=== PATIENT | male | born 1950 | race Caucasian/White ===

== ENCOUNTER 2018-02-03 05:32 | Observation (INO) ==
--- NOTE | 2018-01-30 13:37 | MH ---
cc: Denisha Saleh MD DATE OF ADMISSION: 02/03/2018 SURGERY DATE: 02/02/2018 ADMITTING DIAGNOSIS: Failed partial knee replacement, left knee now for revision left total knee arthroplasty. HISTORY OF PRESENT ILLNESS: This pleasant 67-year-old male is being admitted today for revision left knee arthroplasty due to failed partial knee replacement. PAST MEDICAL HISTORY: Other past history, he has a history of acute hepatitis C in the past, anxiety disorder, essential hypertension, back pain. PAST SURGICAL HISTORY: Include the left knee replacement. CURRENT MEDICATIONS: Include morphine for chronic pain. REVIEW OF SYSTEMS: Noncontributory. FAMILY HISTORY: Noncontributory. SOCIAL HISTORY: He smokes cigarettes occasionally. He does not drink. ALLERGIES: PENICILLIN. PHYSICAL EXAMINATION: GENERAL: A 67-year-old male, well-developed, well-nourished, alert and oriented x3, complaining of pain in his left lower extremity. VITAL SIGNS: Blood pressure 130/72, pulse of 67 and regular, respirations 16, temperature 98.3, pulse oximetry 97% on room air. EYES: PERRL, EOMI. Ears, nose, mouth clear. NECK: Supple. LUNGS: Clear. HEART: Regular rate. ABDOMEN: Soft, positive bowel sounds, nontender. EXTREMITIES: Reveal left knee crepitance on range of motion. Lacks 5 degrees short of full extension. He is neurovascularly intact to his toes. IMPRESSION: Failed partial knee replacement, left knee. PLAN: Admission for revision left knee arthroplasty. The patient plans on going home after surgical stay in the hospital and was given a prescription for postoperative pain and anticoagulation control in the office. Denisha Saleh MD JRR/ch , 01:17 PM , 01:24 PM
[2018-02-03] MEDS ORDERED: Chlorhexidine Gluconate 2% 1 Pack (2 Cloths) TOPICAL ONE ×2 (06:12→06:13)
[2018-02-03] MEDS ORDERED: Metoprolol Tartrate 25 MG Tablet PO ONE ×2 (06:12→06:13)
[2018-02-03] MEDS ORDERED: Sodium Chlor 0.9% Inj 80 ML, Bupivacaine Liposo PF 1.3% Inj 20 ML, Bupivacaine PF 0.25%... P-ARTICULR SCH ×3 (06:30)
[2018-02-03] MEDS ORDERED: Chlorhexidine 4% Topical 120 APPLIC/120 ML Bottle TOPICAL SCH (06:30)
[2018-02-03] MEDS ORDERED: Clindamycin 900 mg/NS Premix 900 MG/50 ML PIGGYBACK IV.SIG SCH (06:30)
[2018-02-03] MEDS ORDERED: Sodium Chlor 0.9% Inj 500 ML IV.SIG SCH ×2 (07:00)
[2018-02-03] MEDS ORDERED: SODIUM CHLOR 0.9% IV.SIG SCH ×2 (07:00→09:20)
[2018-02-03] MEDS ORDERED: Vancomycin Inj 1,000 MG in Sodium Chlor 0.9% Inj 250 ML IV.SIG SCH (07:00)
[2018-02-03] MEDS ORDERED: TRANEXAMIC ACID IV.SIG SCH ×2 (07:00→09:20)
[2018-02-03] MEDS ORDERED: Bupivacaine Liposomal PF 1.3% Inj 20 ML Vial ONE (07:01)
[2018-02-03 07:28] LABS: INR 1.5 Ratio; Prothrombin Time 15.1 sec (9.8-11.6)
[2018-02-03] MEDS ORDERED: Morphine Inj 4 MG/ML Vial IV.PUSH PRN (07:37)
[2018-02-03] MEDS ORDERED: Bisacodyl 10 MG Supp RECTAL PRN (07:37)
[2018-02-03] MEDS ORDERED: Tranexamic Acid Inj 1,000 MG in Sodium Chlor 0.9% Inj 100 ML IV.SIG ONE (07:37)
[2018-02-03] MEDS ORDERED: Post-op Orders (for Pharmacy) OTHER STA (07:37)
--- NOTE | 2018-02-03 07:43 | P.DCO ---
- Physical Therapy Order: Evaluate and treat, Improve ambulation, Strength and gait training - Home Health Nursing Order: Medical education, Nursing assessment with vital signs - Case Management Consult Yes - Certification I have seen patient Dario Thomas on 02/03/18. My clinical findings support the need for the requested home health care services because: High risk of falls I certify that my clinical findings support that this patient is homebound because: Post-op weakness, Unsafe to leave home unassisted
[2018-02-03] MEDS ORDERED: Labetalol HCl Inj 100 MG/20 ML Vial IV.CONT ONE (07:45)
[2018-02-03] MEDS ORDERED: Neostigmine Inj 5 MG/5 ML Syringe IV.PUSH ONE (07:45)
[2018-02-03] MEDS ORDERED: Glycopyrrolate Inj 1 MG/5 ML Syringe IV.PUSH ONE (07:45)
[2018-02-03] MEDS ORDERED: Lidocaine PF 1% Inj 5 ML Syringe OTHER ONE (07:45)
[2018-02-03] MEDS ORDERED: Clindamycin Inj 900 MG/6 ML Vial ONE (07:47)
[2018-02-03] MEDS ORDERED: Non-Formulary Drug (Omega 3-Dha-Epa-Fish Oil [Fish Oil] 1 CAP) PO SCH (09:00)
--- NOTE | 2018-02-03 11:32 | P.BOP ---
- Preoperative Diagnosis (1) Failed total left knee replacement - Postoperative Diagnosis (1) Status post revision of total replacement of left knee Date of procedure: 02/03/18 Procedure: Revision Left Total Knee Implants: see implant record Anesthesia: GETA Surgeon: Denisha Saleh MD Chief Substation Operator: Oksana Ochoa Estimated blood loss (mL): 400 Tourniquet time (min): 0 Urine output (mL): 0 (no choi) Pathology: other (left knee fluid) Condition: stable Disposition: PACU
[2018-02-03] MEDS ORDERED: fentaNYL Citrate Inj 100 MCG/2 ML Ampul ONE ×2 (11:35→11:36)
[2018-02-03] MEDS ORDERED: Morphine Inj 4 MG/ML Vial ONE (11:36)
[2018-02-03] MEDS ORDERED: *morphine SULFATE 10 MG/ML PERIprocedure ONLY ONE (11:58)
--- NOTE | 2018-02-03 12:18 | XR ---
EXAM DATE: 02/03/2018 12:15 PM EDT AGE/SEX: 67 years / Male INDICATIONS: Post op left knee. CLINICAL DATA: This is the patient's initial encounter. Patient reports that signs and symptoms have been present for 1 day and indicates a pain score of Nonresponsive. MEDICAL/SURGICAL HISTORY: None. None. COMPARISON: No prior exams available for comparison. FINDINGS: The patient's had a total knee arthroplasty with excellent position. There is no acute fracture. No l ytic or blastic lesion is identified. CONCLUSION: Total knee arthroplasty without complication Electronically signed by: Vignesh Nolan MD 02/03/2018 12:16 PM EDT
[2018-02-03] MEDS: Senna/Docusate Sodium 8.6/50 MG Tablet PO SCH ×2 (12:44→20:42)
[2018-02-03] MEDS ORDERED: *morphine SULFATE 4 MG/ML PERIprocedure ONLY ONE (13:21)
[2018-02-03] MEDS: Multivitamin/Minerals Therapeutic Tablet PO SCH ×2 (14:36→20:42)
[2018-02-03] MEDS: Ascorbic Acid 500 MG Tablet PO SCH (14:37)
[2018-02-03] MEDS: valACYclovir 500 MG Tab PO SCH (14:37)
--- NOTE | 2018-02-03 14:37 | MP ---
cc: Denisha Saleh MD DATE OF OPERATION: 02/03/2018 DATE OF SURGERY: 02/03/2018. PREOPERATIVE DIAGNOSIS: Failed left knee arthroplasty. POSTOPERATIVE DIAGNOSIS: Failed left knee arthroplasty. SURGERY PERFORMED: Revision of left knee arthroplasty with Consensus components; size 5 femur, 5 tibia, 14 insert and size 2 mm x 7.5 mm patella with 2 batches of antibiotic-impregnated cement. SURGEON: Denisha Saleh MD BACK LINE COOK: DARLIN Norman ANESTHESIA: General intubation. NOTE: An extra hour of surgical time or grafting of bone cysts and extra debridement. PROCEDURE WAS FOLLOWS: The patient was brought to the operating room, placed on the operating table in supine position. After successful induction of general anesthesia, the patient's left knee, thigh and leg were prepped and draped in the usual manner. An anteromedial incision was then made extending 12 inches in length, centered over the medial split of the patellar and carried down through the subcutaneous tissue, pausing to control bleeding as no tourniquet was used during this case. Incision carried down through the deep fascia to expose the knee joint. The patella was inverted and the posterior aspect of the patella removed with an oscillating saw. A size 2 patellar found to fit best and the holes were made for the patella, followed by a protective plate to allow cutting without hurting the patellar in later parts of the procedure. The knee was then flexed and debrided of all soft tissue and the femoral insert of the knee implant was found to be totally loose and removed by fingers only; no wedging out of the components or cutting through the old cement was needed. The femoral cutting jigs were then applied using Whitesides lines as a reference and the anterior and posterior cuts were made. Chamfer cuts were made after the distal cut was made. The trial femur was then applied; size 5, for the drill holes and followed by the anterior trochlear groove slot-maker cut, which was also made and a slot removed. Next, the tibia was approached. The insert in the tibia was also noted to be totally loose and easily removed by just using a trocar and then all soft tissue debrided. Using the tibial cutting guide; external guide, the surface was removed down to the level just below where the prosthesis was. At this point, after the cuts were made, a large bone cyst was noted in the lateral side measuring 1 x 1 x half-inch deep of inches and this was curetted and drilled and later filled with a cortical cancellous bone chips from the patella and femoral bone that had been removed. Also noted was a small anterior cyst. Then trials were inserted, found to track best with a size 5. The cruciate cut made for the actual component, followed by the drill holes. Trials were then inserted, found to track best with size 5 femur, 5 tibia, a 14 insert and 2 patella. All trials were then removed. The wound irrigated copiously with antibiotic solution and Waterpik. Meticulous hemostasis achieved and the actual components cemented into place after the bone graft was inserted in the tibia. After cement was hardened; a mixture of Exparel, normal saline and 0.25% Marcaine plain was used around the knee joint for extra pain control. Bleeding was again noted. Therefore, 2 mL of thrombin and a unit of FloSeal was used for extra bleeding control. Once bleeding stopped and meticulous hemostasis achieved, the deep fascia was approximated with running #2-Quill. Subcutaneous tissue approximated using interrupted and running 2-0 and 3-0 Quill and a Prineo dressing. No drain utilized. No tourniquet utilized. The estimated blood loss though was 400 mL. The sponge and suture counts were correct and the patient tolerated the procedure well and left the operating room in good condition. DARLIN Norman, was present during the entire procedure to include patient positioning and the procedure. The medical necessity of nurse practitioner rn first assistant was indicated in this case due to the surgical complexity of the case itself. During the surgical case, the surgical oncologist was working the back table while my neurosurgical nurse practitioner, DARLIN was directly assisting me. JMD SOFIA Winter/raj , 11:33 AM , 11:48 AM
[2018-02-03] MEDS: Clindamycin 900 mg/NS Premix 900 MG/50 ML PIGGYBACK IV.SIG SCH (17:11)
[2018-02-04] MEDS: Clindamycin 900 mg/NS Premix 900 MG/50 ML PIGGYBACK IV.SIG SCH ×2 (00:17→08:59)
[2018-02-04 05:21] LABS: Baso % (Auto) 0.3 % (0.0-2.0); Eos % (Auto) 0.1 % (0.0-4.0); Hemoglobin 13.4 gm/dL (13.0-17.0); Lymph # (Auto) 1.6 th/mm3 (1.0-4.8); Lymph % (Auto) 14.6 % (9.0-44.0); Mean Corpuscular HGB Conc 33.5 % (32.0-36.0); Mean Corpuscular Hemoglobin 32.3 pg (27.0-34.0); Mean Corpuscular Volume 96.3 fL (80.0-100.0); Mean Platelet Volume 8.7 fL (7.0-11.0); Mono # (Auto) 1.2 th/mm3 (0.0-0.9); Mono % (Auto) 10.7 % (0.0-8.0); Neut # (Auto) 8.2 th/mm3 (1.8-7.7); Neut % (Auto) 74.3 % (16.0-70.0); Platelet Count 126 th/mm3 (150-450); Red Blood Count 4.16 mil/mm3 (4.50-5.90); Red Cell Distribution Width 14.1 % (11.6-17.2)
[2018-02-04 05:32] LABS: INR 1.5 Ratio; Prothrombin Time 15.1 sec (9.8-11.6)
[2018-02-04 05:47] LABS: Alanine Aminotransferase 36 U/L (12-78); Albumin 3.1 g/dL (3.4-5.0); Anion Gap 8 meq/L (5-15); Aspartate Aminotransferase 28 U/L (15-37); Blood Urea Nitrogen 16 mg/dL (7-18); Carbon Dioxide 30.2 meq/L (21.0-32.0); Chloride 105 meq/L (98-107); Glomerular Filtration Rate Greater Than 89 mL/min (>89); Glucose,Random 113 mg/dL (74-106); Potassium 4.7 meq/L (3.5-5.1); Sodium 143 meq/L (136-145)
[2018-02-04 05:50] LABS: Alkaline Phosphatase 57 U/L (45-117); Total Protein 6.3 g/dL (6.4-8.2)
--- NOTE | 2018-02-04 08:48 | P.PNOP ---
Subjective Interval history: pt comfortable at present time. Physical Exam Vital signs: Vital Signs 02/03/18 11:26 02/03/18 11:30 02/03/18 11:45 Temperature 97.1 F L Pulse Rate 66 60 58 L Respiratory Rate 15 12 22 Blood Pressure 181/93 H 158/85 H 132/61 Pulse Oximetry 95 94 L 97 02/03/18 12:00 02/03/18 12:05 02/03/18 12:15 Temperature Pulse Rate 60 57 L Respiratory Rate 13 12 Blood Pressure 153/72 H 124/64 Pulse Oximetry 96 96 96 02/03/18 12:30 02/03/18 12:45 02/03/18 13:00 Temperature Pulse Rate 55 L 58 L 58 L Respiratory Rate 11 L 24 15 Blood Pressure 135/71 144/77 H 144/79 H Pulse Oximetry 97 97 93 L 02/03/18 13:15 02/03/18 13:25 02/03/18 13:30 Temperature Pulse Rate 58 L 62 Respiratory Rate 15 18 22 Blood Pressure 138/75 159/81 H Pulse Oximetry 93 L 96 02/03/18 14:10 02/03/18 14:30 02/03/18 15:15 Temperature 97.8 F Pulse Rate 60 61 Respiratory Rate 16 18 18 Blood Pressure 126/75 151/74 H Pulse Oximetry 94 L 94 L 02/03/18 20:00 02/04/18 00:00 02/04/18 00:50 Temperature 97.4 F L 98 F Pulse Rate 71 68 Respiratory Rate 16 16 15 Blood Pressure 145/76 H 183/86 H Pulse Oximetry 99 100 02/04/18 01:40 02/04/18 04:00 Temperature 98.3 F Pulse Rate 60 Respiratory Rate 17 16 Blood Pressure 166/79 H Pulse Oximetry 98 Intake & Output 02/03/18 02/04/18 02/04/18 18:59 06:59 18:59 Intake Total 3517.0 / 3517.0 100 / 100 Output Total 400 / 400 300 / 300 Balance 3117.0 / 3117.0 -200 / -200 Weight 84.822 kg 93 kg Intake: IV 1517.0 / 1517.0 100 / 100 Cleocin 900 mg/NS Premix 900 mg 100 / 100 In 50 ml @ 100 mls/hr IV.SIG Q8H [facility] Rx#:[id number] LR 1000 mL Inj 1,000 ML @ 30 1050 / 1050 mls/hr IV.SIG .Q24H [facility] Rx#: [id number] Cyklokapron Inj 850 MG In NS 217.0 / 217.0 Inj 100 ML @ 200 mls/hr IV.SIG ONCE [facility] Rx#:[id number] Anesthesia Amount 1999 / 1999 Output: Urine 300 / 300 Estimated Blood Loss 400 / 400 Other: Date of Last Bowel Movement 02/02/18 - Constitutional no acute distress Results - Labs CBC & Chem 7: 02/04/18 04:44 02/04/18 04:44 Laboratory Results - last 24 hr 02/04/18 02/04/18 02/04/18 04:44 04:44 04:44 WBC 11.0 RBC 4.16 L Hgb 13.4 Hct 40.0 MCV 96.3 MCH 32.3 MCHC 33.5 RDW 14.1 Plt Count 126 L MPV 8.7 Neut % (Auto) 74.3 H Lymph % (Auto) 14.6 Josephine % (Auto) 10.7 H Eos % (Auto) 0.1 Baso % (Auto) 0.3 Neut # (Auto) 8.2 H Lymph # (Auto) 1.6 Josephine # (Auto) 1.2 H Eos # (Auto) 0.0 Baso # (Auto) 0.0 WBC Differential . Differential Comment Auto diff final PT 15.1 H INR 1.5 Sodium 143 Potassium 4.7 Chloride 105 Carbon Dioxide 30.2 Anion Gap 8 BUN 16 Creatinine 0.75 Estimated GFR Greater than 89 Random Glucose 113 H Calcium 8.0 L Total Bilirubin 1.1 H AST 28 ALT 36 Alkaline Phosphatase 57 Total Protein 6.3 L Albumin 3.1 L Microbiology 02/03/18 08:00 Wound - Knee Acid Fast Bacilli Smear - Final No acid fast bacilli seen 02/03/18 08:00 Wound - Knee Fungal Smear - Final No fungal elements seen 02/03/18 08:00 Wound - Knee Gram Stain - Final - Imaging Impressions Knee X-Ray 02/03/18 07:37 CONCLUSION: Total knee arthroplasty without complication Assessment and Plan - Problem List (1) Status post revision of total replacement of left knee Code(s): Z96.652 - Presence of left artificial knee joint Status: Acute - Attending Attestation Attending Attestation: Dressing dry and intact. No calf tenderness. Doing well first day post op. Pt today. Home tomorrow if stable.
[2018-02-04] MEDS: Ascorbic Acid 500 MG Tablet PO SCH (08:52)
[2018-02-04] MEDS: Multivitamin/Minerals Therapeutic Tablet PO SCH ×2 (08:53→21:51)
[2018-02-04] MEDS: Senna/Docusate Sodium 8.6/50 MG Tablet PO SCH ×2 (08:53→21:51)
--- NOTE | 2018-02-04 11:17 | P.CONIM ---
History of Present Illness Service: [facility] hospitalist Requesting Physician: Scott Saleh Reason for Consult: help with post op management of liver disease and low platelets and high IN Primary Care Provider: Jt Talavera MD Family Provider: Dr. talavera History of Present Illness: This is a 67-year-old male patient with a past medical history which includes liver cirrhosis, hepatitis C, portal hypertension, thrombocytopenia, peripheral arterial disease, peripheral vascular disease, lumbar radiculopathy and nicotine dependence. On 02/03/2018 patient underwent revision of left knee arthroplasty with Dr. Saleh for treatment of failed left knee arthroplasty. We have been consulted to help with post op management of liver disease and low platelets and high INR. Patient's INR is 1.5. Patient placed on Eliquis 2.5 mg p.o. twice daily per orthopedic surgery. Patient denies evidence of bleeding. Patient reports feeling well and offers no complaints at this time. Past medical history: liver cirrhosis, hepatitis C, portal hypertension, thrombocytopenia, peripheral arterial disease, peripheral vascular disease, lumbar radiculopathy. Past surgical history: Excision of lesion of mediastinum, hand incision removal for foreign body, knee arthroplasty, knee replacement Social history: lives with EtOH abuse history Daily smoker 1 pack a day Family medical history includes [place] Review of Systems All other systems reviewed negative except as stated in HPI PMFSH - History History Provided By: Patient - Medical History Medical History: Medical History (Last Reviewed 02/05/18 @ 07:42 by Jerman Braun) History of liver cancer Hx of hepatitis C Hypertension Wears glasses - Surgical History Surgical History: Surgical History (Last Reviewed 02/04/18 @ 12:45 by Margaret Valladares) History of unicondylar arthroplasty of left knee Hx of arthroscopy of left knee - Tobacco History Second Hand Smoke Exposure: No Smoking Status: Never smoker - Alcohol History How Often Do You Have a Drink Containing Alcohol: Never - Substance Use History Substance History: No History of Abuse - Substance Use Type Alcohol Status: Sustained Remission Route Used: By Mouth Last Used: 30 years - Travel History Recent Travel in the [place] Within the Last 8 Weeks: No Recent Travel Out of the Country Within the Last 8 Weeks: No - Immunization History Tetanus Immunization: Unsure Hx Influenza Vaccine This Season: No Medications and Allergies Allergies Allergy/AdvReac Type Severity Reaction Status Date / Time latex Allergy Severe Rash Verified 02/03/18 07:12 penicillin G Allergy Severe Anaphylaxis Verified 02/03/18 07:12 Wjrgyor-Ppg-Omu Reductase Allergy Severe DIZZINESS, Verified 02/03/18 07:12 Inhibitor FAINTING, ETC Home Medications Medication Instructions Recorded Confirmed Type ascorbic acid (vitamin C) 1 cap PO DAILY 01/31/18 02/03/18 History omega 0-whh-stk-fish oil [Fish Oil] 1 cap PO DAILY 01/31/18 02/03/18 History propranolol 20 mg PO BID 01/31/18 02/03/18 History valacyclovir 500 mg PO EVERY OTHER DAY 01/31/18 02/03/18 History Active Medications: Active Medications Hydrocodone Bitart/Acetaminophen ([place] 7.5/325) 1 tab PO Q4H PRN PRN Reason: PAIN LESS THAN 5 ON SCALE Hydrocodone Bitart/Acetaminophen ([place] 7.5/325) 2 tab PO Q6H PRN PRN Reason: PAIN SCALE 5 TO 10 Last Admin: 02/03/18 23:48 Dose: 2 tab Al Hydroxide/Mg Hydroxide (Milk Of Josiane Segura) 30 ml PO BID PRN PRN Reason: Mild Constipation Apixaban (Eliquis) 2.5 mg PO BID [facility] [place] Last Admin: 02/04/18 09:21 Dose: 2.5 mg Ascorbic Acid (Vitamin C) 500 mg PO DAILY [facility] [place] Last Admin: 02/04/18 08:52 Dose: 500 mg Bisacodyl (Dulcolax Supp) 10 mg RECTAL DAILY PRN PRN Reason: SEVERE CONSITIPATION Chlorhexidine Gluconate (Hibiclens 4% Topical) 1 applicatio TOPICAL ONCE [facility] [place] Stop: 02/07/18 06:29 Sodium Chloride (Ns Inj) 500 mls @ 30 mls/hr IV.SIG .Q10H [facility] [place] Clindamycin/Sodium Chloride (Cleocin 900 Mg/Ns Premix) 900 mg in 50 mls @ 100 mls/hr IV.SIG SOCIAL WORK ASSOCIATE [facility] [place] Stop: 02/07/18 06:29 Last Admin: 02/03/18 08:54 Dose: 100 mls/hr Vancomycin HCl 1,000 mg/ (Sodium Chloride) 250 mls @ 250 mls/hr IV.SIG SOCIAL WORK ASSOCIATE [facility] [place] Stop: 02/06/18 06:19 Last Infusion: 02/03/18 10:05 Dose: Infused Lactated Ringer's (Lr 1000 Ml Inj) 1,000 mls @ 80 mls/hr IV.CONT .[id number] [facility] [place] Last Admin: 02/04/18 08:56 Dose: Not Given Lactulose (Lactulose Liq) 30 ml PO DAILY PRN PRN Reason: SEVERE CONSITIPATION Miscellaneous Information ([place] Nursing Information) 1 each OTHER UNSCH PRN PRN Reason: SEE LABEL COMMENTS Stop: 02/04/18 11:26 Morphine Sulfate (Morphine Inj) 2 mg IV.PUSH Q3H PRN PRN Reason: BREAKTHROUGH PAIN Multivitamins/Minerals (Theragran-M) 1 tab PO BID [facility] [place] Stop: 04/04/18 08:59 Last Admin: 02/04/18 08:53 Dose: 1 tab Ondansetron HCl (Zofran Odt) 4 mg PO Q6H PRN PRN Reason: NAUSEA OR VOMITING Last Admin: 02/03/18 23:50 Dose: 4 mg Propranolol HCl (Inderal) 20 mg PO BID [facility] [place] Last Admin: 02/04/18 08:53 Dose: 20 mg Senna/Docusate Sodium (Adelita-Colace) 1 tab PO BID [facility] [place] Last Admin: 02/04/18 08:53 Dose: 1 tab Sennosides (Senokot) 17.2 mg PO BID PRN PRN Reason: Moderate Constipation Sodium Chloride (Ns Flush) 2 ml IV.FLUSH BID [facility] [place] Last Admin: 02/04/18 08:57 Dose: 2 ml Sodium Chloride (Ns Flush) 2 ml IV.FLUSH UNSCH PRN PRN Reason: FLUSH AFTER USING IV ACCESS Valacyclovir HCl (Valtrex) 500 mg PO EVERY OTHER DAY [facility] [place] Last Admin: 02/03/18 14:37 Dose: Not Given Exam Vital signs: Vital Signs 02/03/18 11:26 02/03/18 11:30 02/03/18 11:45 Temperature 97.1 F L Pulse Rate 66 60 58 L Respiratory Rate 15 12 22 Blood Pressure 181/93 H 158/85 H 132/61 Pulse Oximetry 95 94 L 97 02/03/18 12:00 02/03/18 12:05 02/03/18 12:15 Temperature Pulse Rate 60 57 L Respiratory Rate 13 12 Blood Pressure 153/72 H 124/64 Pulse Oximetry 96 96 96 02/03/18 12:30 02/03/18 12:45 02/03/18 13:00 Temperature Pulse Rate 55 L 58 L 58 L Respiratory Rate 11 L 24 15 Blood Pressure 135/71 144/77 H 144/79 H Pulse Oximetry 97 97 93 L 02/03/18 13:15 02/03/18 13:25 02/03/18 13:30 Temperature Pulse Rate 58 L 62 Respiratory Rate 15 18 22 Blood Pressure 138/75 159/81 H Pulse Oximetry 93 L 96 02/03/18 14:10 02/03/18 14:30 02/03/18 15:15 Temperature 97.8 F Pulse Rate 60 61 Respiratory Rate 16 18 18 Blood Pressure 126/75 151/74 H Pulse Oximetry 94 L 94 L 02/03/18 20:00 02/04/18 00:00 02/04/18 00:50 Temperature 97.4 F L 98 F Pulse Rate 71 68 Respiratory Rate 16 16 15 Blood Pressure 145/76 H 183/86 H Pulse Oximetry 99 100 02/04/18 01:40 02/04/18 04:00 02/04/18 08:00 Temperature 98.3 F 98 F Pulse Rate 60 72 Respiratory Rate 17 16 18 Blood Pressure 166/79 H 136/75 Pulse Oximetry 98 98 Intake & Output 02/03/18 02/04/18 02/04/18 18:59 06:59 18:59 Intake Total 3517.0 / 3517.0 100 / 100 Output Total 400 / 400 300 / 300 Balance 3117.0 / 3117.0 -200 / -200 Weight 84.822 kg 93 kg Intake: IV 1517.0 / 1517.0 100 / 100 Cleocin 900 mg/NS Premix 900 mg 100 / 100 In 50 ml @ 100 mls/hr IV.SIG Q8H [facility] Rx#:[id number] LR 1000 mL Inj 1,000 ML @ 30 1050 / 1050 mls/hr IV.SIG .Q24H [facility] Rx#: [id number] Cyklokapron Inj 850 MG In NS 217.0 / 217.0 Inj 100 ML @ 200 mls/hr IV.SIG ONCE [facility] Rx#:[id number] Anesthesia Amount 1999 / 1999 Output: Urine 300 / 300 Estimated Blood Loss 400 / 400 Other: Date of Last Bowel Movement 02/02/18 Narrative: GENERAL: This is a well-nourished, well-developed patient, in no apparent distress. CARDIOVASCULAR: Regular rate and rhythm RESPIRATORY: Clear to auscultation. Breath sounds equal bilaterally. GASTROINTESTINAL: Abdomen soft, non-tender. Normal active bowel sounds MUSCULOSKELETAL: Extremities without clubbing, cyanosis, or edema. post-op dressing dry and intact NEURO: Alert & Oriented. Moves all ext x4 Results - Labs CBC & Chem 7: 02/05/18 05:32 02/04/18 04:44 Labs: Laboratory Results - last 24 hr 02/04/18 02/04/18 02/04/18 04:44 04:44 04:44 WBC 11.0 RBC 4.16 L Hgb 13.4 Hct 40.0 MCV 96.3 MCH 32.3 MCHC 33.5 RDW 14.1 Plt Count 126 L MPV 8.7 Neut % (Auto) 74.3 H Lymph % (Auto) 14.6 Waller % (Auto) 10.7 H Eos % (Auto) 0.1 Baso % (Auto) 0.3 Neut # (Auto) 8.2 H Lymph # (Auto) 1.6 Waller # (Auto) 1.2 H Eos # (Auto) 0.0 Baso # (Auto) 0.0 WBC Differential . Differential Comment Auto diff final PT 15.1 H INR 1.5 Sodium 143 Potassium 4.7 Chloride 105 Carbon Dioxide 30.2 Anion Gap 8 BUN 16 Creatinine 0.75 Estimated GFR Greater than 89 Random Glucose 113 H Calcium 8.0 L Total Bilirubin 1.1 H AST 28 ALT 36 Alkaline Phosphatase 57 Total Protein 6.3 L Albumin 3.1 L - Imaging Impressions Knee X-Ray 02/03/18 07:37 CONCLUSION: Total knee arthroplasty without complication Assessment and Plan - Assessment (1) Failed total left knee replacement Code(s): T84.093A - Other mechanical complication of internal left knee prosthesis, initial encounter Status: Acute Plan: Failed left total knee replacement This is a 67-year-old male patient with a past medical history which includes liver cirrhosis, hepatitis C, portal hypertension, thrombocytopenia, peripheral arterial disease, peripheral vascular disease, lumbar radiculopathy and nicotine dependence. On 02/03/2018 patient underwent revision of left knee arthroplasty with Dr. Saleh for treatment of failed left knee arthroplasty. We have been consulted due to past medical history which includes liver cirrhosis, hepatitis C, portal hypertension, thrombocytopenia, peripheral arterial disease, peripheral vascular disease, lumbar radiculopathy. Patient's INR is 1.5. Patient placed on Eliquis 2.5 mg p.o. twice daily per orthopedic surgery. liver cirrhosis, hepatitis C, portal hypertension Recommend patient follow uo with PCP/ GI after DC as an outpatient HTN Continue patient's home propranolol 20 mg p.o. twice daily - Attending Attestation Patient examined. Assessment and plan formulated with Leah Murphy PA-C. I agree with the above.
[2018-02-05 06:52] LABS: Hematocrit 36.9 % (39.0-51.0); Hemoglobin 12.5 gm/dL (13.0-17.0)
--- NOTE | 2018-02-05 08:06 | P.PNOP ---
Subjective Interval history: Pt comfortable today without complaints. Physical Exam Vital signs: Vital Signs 02/04/18 19:20 02/04/18 23:37 02/05/18 03:54 Temperature 98.3 F 98.7 F 98.1 F Pulse Rate 78 73 73 Respiratory Rate 18 18 18 Blood Pressure 134/75 166/81 H 139/93 H Pulse Oximetry 96 97 95 Intake & Output 02/04/18 02/05/18 02/05/18 18:59 06:59 18:59 Intake Total 480 / 480 Balance 480 / 480 Weight 93 kg Intake: Oral 480 / 480 Other: # Voids 3 Date of Last Bowel Movement 02/02/18 # Bowel Movements 0 - Constitutional no acute distress Results - Labs CBC & Chem 7: 02/05/18 05:32 02/04/18 04:44 Laboratory Results - last 24 hr 02/05/18 05:32 Hgb 12.5 L Hct 36.9 L Microbiology 02/03/18 08:00 Wound - Knee Gram Stain - Final 02/03/18 08:00 Wound - Knee Wound Culture - Preliminary No growth in 24 hours Assessment and Plan - Problem List (1) Status post revision of total replacement of left knee Code(s): Z96.652 - Presence of left artificial knee joint Status: Acute - Attending Attestation Attending Attestation: Patient is doing very well second day postop. There is minimal swelling and the wound is healing well without complication. He is neurovascularly intact to his toes and there is no calf tenderness. We will stop the blood thinner today and start him on one aspirin a day. He may be discharged this afternoon with instructions for physical therapy and home health care. Follow-up in the office next week.
[2018-02-05 08:35] VITALS: BP 170/81; PULSE 74; RESP 20; TEMP 98.3; O2SAT 92
[2018-02-05] MEDS ORDERED: Aspirin 325 MG Tablet PO SCH (09:00)
[2018-02-05] MEDS: Senna/Docusate Sodium 8.6/50 MG Tablet PO SCH (09:20)
[2018-02-05] MEDS: Multivitamin/Minerals Therapeutic Tablet PO SCH (09:21)
[2018-02-05] MEDS: Ascorbic Acid 500 MG Tablet PO SCH (09:21)
[2018-02-05] MEDS: valACYclovir 500 MG Tab PO SCH (09:50)
--- NOTE | 2018-02-05 10:55 | OTSOAPIP ---
TIME SESSION COMPLETED: 1050 RECEIVED OCCUPATIONAL THERAPY ORDERS. UPON ARRIVAL, PATIENT WAS PREPARING TO DISCHARGE HOME. PATIENT WAS DRESSED. HE REPORTS HE HAS BEEN ABLE TO AMBULATE IN ROOM AND CARE FOR HIM SELF AND GOING TO THE BATHROOM. PATIENT REPORTS HE WILL HAVE TWO DAUGHTERS AT HOME WHO ARE ABLE TO ASSIST NEEDED. POLITELY DECLINES OCCUPATIONAL THERAPY EVALUATION. OT WILL SIGN OFF. Therapist: ITZ Zavala/Emmett Signature on file
--- NOTE | 2018-02-05 13:48 | MD ---
cc: Denisha Saleh MD DATE OF DISCHARGE: 02/05/2018 ADMITTING DIAGNOSIS: Failed left total knee arthroplasty. DISCHARGE DIAGNOSIS: Failed left total knee arthroplasty. DISCHARGE SUMMARY: This pleasant 67-year-old male was admitted on 02/03/2018 with a failed left knee arthroplasty, at which time he underwent a revision total knee arthroplasty. He received a course of prophylactic IV antibiotics within 23 hours and started on anticoagulation therapy. He continued to improve. Remaining afebrile. Vital signs stable. Neurovascularly intact. tolerated food and fluid well and out of bed with physical therapy. Tolerated p.o. pain medications. Continued to improve, remained afebrile, and received medical management as well by the hospitalist. Was discharged on second postoperative day to home with physical therapy and home health care and followup office appointment the following week. He was discharged in good condition with p.o. pain medications and aspirin as anticoagulation therapy. JMD SOFIA Winter/debbie , 08:10 AM , 08:16 AM
== END 2018-02-05 12:46 | disposition home health service (06) ==
LOC: HSDI 05:32 → INTOOBSV 05:32 → N06 15:43
PROVIDERS: ADMIT Surgery; ATTEND Surgery